=== PATIENT | male | born 1990 | race Caucasian/White ===

== ENCOUNTER → 2017-12-19 | Outpatient (CLI) | payer OTHER ==
[~2017-12-19] MED LIST: IOPAMIDOL (ISOVUE-300) 100 ML BTL ONE
== END ==
LOC: FIMAGING 12:07
PROVIDERS: ATTEND Family Medicine
DX: R10.31 Right lower quadrant pain (principal); K76.89 Other specified diseases of liver
CPT/HCPCS: Q9967

== ENCOUNTER 2018-11-08 14:33 | Emergency (ER) | payer SELFPAY ==
[2018-11-08] MEDS ORDERED: LORazepam 1 MG TAB PO ONE (15:16)
--- NOTE | 2018-11-08 15:16 | EDPHY ---
H & P Stated Complaint: headache and hot flashes Source: Patient Exam Limitations: No limitations - Personal History Current Tetanus/Diphtheria Vaccine: Yes Current Tetanus Diphtheria and Acellular Pertussis (TDAP): Yes - Medical/Surgical History Hx Asthma: No Hx Chronic Respiratory Disease: No Hx Diabetes: No Hx Cardiac Disease: No Hx Renal Disease: No Hx Cirrhosis: No Hx Alcoholism: No Hx HIV/AIDS: No Hx Splenectomy or Spleen Trauma: No Other PMH: healthy per pt - some anxiety Time Seen by Provider: 11/08/18 15:07 HPI/ROS: HPI: This is a 28-year-old male who presents with Chief Complaint: headache and hot flashes Location: Head Quality: Pain Duration: Several months Signs and Symptoms: no fever, no nausea, no vomiting, + photophobia, no noise sensitivity, no neck stiffness, no ear pain, no tinnitus, no nasal congestion, no sinus pressure, no weakness, no radiation, no aura Timing: Acute, daily Severity: [id number] Context: Patient is generally healthy, suffers from anxiety, presents with daily chronic headaches that her generalized in nature and dull and aching accompanied by hot flashes and fatigue. He reports he has gained 30 lb over the summer. He initially thought he contracted chlamydia over the summer by his girlfriend and his tests came back today and had no STDs. He has been seen at the [facility] several times regarding watery eyes, itchy eyes, headaches. He was treated 2 months ago for sinus infection with 10 days of antibiotics with no improvement in his headaches or itchy eyes. He is trying to get his health insurance figured out but is very difficult and he reports that he feels very stressed. Patient denies this being the worst headache of his life or thunderclap symptoms. Modifying Factors: See above Comment: ROS: A comprehensive 10 system review of systems is otherwise negative aside from elements mentioned in the history of present illness. MEDICAL/SURGICAL/SOCIAL HISTORY: Medical history: Generally healthy. Anxiety. Surgical history: Denies Social history: Nonsmoker. Smokes marijuana. Family history noncontributory. CONSTITUTIONAL: Tearful, anxious, adult white male, smells like marijuana, awake and alert, no obvious distress HEENT: Atraumatic and normocephalic, PERRL, EOMI. Nares patent; no rhinorrhea; no nasal mucosal edema. Tympanic membranes clear. Oropharynx clear, no exudate and moist pink mucosa. Airway patent. No lymphadenopathy. No meningismus. Cardiovascular: Normal S1/S2, regular rate, regular rhythm, without murmur rub or gallop. PULMONARY/CHEST: Symmetrical and nontender. Clear to auscultation bilaterally. Good air movement. No accessory muscle usage. ABDOMEN: Soft, nondistended, nontender, no rebound, no guarding, no peritoneal signs, no masses or organomegaly. No CVAT. EXTREMITIES: 2/2 pulses, strength 5/5, no deformities, no clubbing, no cyanosis or edema. NEUROLOGICAL: no focal neuro deficits. GCS 15. Normal cerebellar testing. Cranial nerves 2-12 grossly intact. Normal [id number]. SKIN: Warm and dry, no erythema. no rash. Good capillary refill. (Claudia Dela Cruz) Constitutional: Initial Vital Signs Temperature (C) 36.8 C 11/08/18 14:47 Heart Rate 90 11/08/18 14:47 Respiratory Rate 16 11/08/18 14:47 Blood Pressure 144/84 H 11/08/18 14:47 O2 Sat (%) 98 11/08/18 14:47 O2 Delivery Mode Room Air Allergies/Adverse Reactions: No Known Allergies Allergy (Unverified 11/08/18 14:50) Home Medications: Medication Instructions Recorded NK [No Known Home Meds] 11/08/18 Medical Decision Making ED Course/Re-evaluation: Vital signs reviewed and stable upon arrival. Head CT ordered Given p.o. Ativan 1 mg 1543: Case management consult regarding insurance 1545: Called by Radiology, Dr. Guajardo, who advised that head CT scan shows no acute intracranial process including no sinusitis. This patient was seen under the supervision of my secondary supervising physician. I evaluated care for this patient independently. Discussed this patient with Dr. Luna who did not see the patient. (Claudia Dela Cruz) I did not see this patient while he was in the emergency department. However his care was discussed with the PA while the patient was in the department. I agree with treatment plan and management (Jontahan Luna) Differential Diagnosis: Headache including but not limited to subarachnoid hemorrhage, migraine headache , tension headache and infectious causes such as meningitis, pharyngitis and sinusitis. (Claudia Dela Cruz) - Data Points Medications Given: Discontinued Medications Lorazepam (Ativan) 1 mg PO EDNOW ONE Stop: 11/08/18 15:17 Last Admin: 11/08/18 15:21 Dose: 1 mg Departure - Departure Disposition: Home, Routine, Self-Care Clinical Impression: Does not have health insurance, Daily headache Condition: Good Instructions: General Headache (ED) Additional Instructions: Take Tylenol 650 mg every 4 hours and/or Ibuprofen 600 mg every 8 hours with food as needed for pain/headache. Consume a minimum of 8-10 glasses of water or electrolyte fluid replacement drinks that include Gatorade, Powerade, Pedialyte. Follow-Up: Please follow-up as noted above. Follow up sooner if your condition worsens or if you develop any new problems Call as soon as possible for an appointment. Be clear when you call for an appointment that this is an Emergency Department follow-up. Contact the Emergency Department if you are having trouble arranging follow up care. Our referrals are not based on your insurance network. When time allows, contact your insurance carrier to verify the referral physician is in your plan. If not, get a referral for an in-network cabler. Please ask us if you have any questions. Referrals: J Carlos Gardner MD [Medical Doctor] - As per Instructions [facility],. [Clinic] - 5-7 days, call for appt.
[2018-11-08 17:01] VITALS: BP 123/71
--- NOTE | 2018-11-09 18:23 | ASMTCMCOM ---
CM Note CM Note Notes: Late Entry from 11/08/18: Requested to speak to pt re:Medicaid. Spoke w/pt and he states he is homeless and staying at the [facility] long-term. Pt states he tried to apply for Medicaid online but it won't allow him to complete the application due to him living in [place] in the past and having Medicaid there. Pt provided information on [facility], [facility] and also provided him contact info for [employer]. Pt appreciative of assistance and resources. CM available for further assistance if needed. Date Signed: 11/09/2018 06:23 PM Electronically Signed By:Trish Buchanan RN
== END 2018-11-08 17:01 | disposition home or self-care (01) ==
DX: R51 Headache (principal); R23.2 Flushing; F41.9 Anxiety disorder, unspecified

== ENCOUNTER 2018-11-29 11:36 | Emergency (ER) | payer SELFPAY ==
--- NOTE | 2018-11-29 12:12 | EDPHY ---
H & P Stated Complaint: H/A, weakness x3mos, CP rad L arm and neck since lst night. Source: Patient Exam Limitations: No limitations - Personal History Current Tetanus/Diphtheria Vaccine: Yes - Medical/Surgical History Hx Asthma: No Hx Chronic Respiratory Disease: No Hx Diabetes: No Hx Cardiac Disease: No Hx Renal Disease: No Hx Cirrhosis: No Hx Alcoholism: No Hx HIV/AIDS: No Hx Splenectomy or Spleen Trauma: No Other PMH: healthy per pt - some anxiety - Social History Smoking Status: Never smoked Time Seen by Provider: 11/29/18 12:11 HPI/ROS: HPI: This is a 28-year-old male who presents with Chief Complaint: H/A, weakness x 3 mos, CP rad L arm and neck since lst night. Location: Left chest, left neck Quality: Pain Duration: Since last night Signs and Symptoms: no shortness of breath at rest, no shortness of breath on exertion, no cough, no palpitations, no lower extremity edema, no wheezing, no orthopnea, no paroxysmal nocturnal dyspnea, no fever, no injury/trauma, no hemoptysis, no carpal pedal spasms Timing: Acute, waxes and wanes, radiating in nature Severity: [id number]-oo-yuwuifau Context: Patient is homeless, nonsmoker, denies drug use, presents with sudden onset of left-sided chest pain that radiated up into his left neck that was described as moderate constant and radiating in nature accompanied by shortness of breath, anger and anxiety. 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 Patient reports that he went on break in the chest pain resolved. He then went home and started to think about the chest pain and thought it could be something worse to the chest pain return. He currently complains of left-sided chest pain that is nonradiating in nature at this time. His grandfather on the paternal side has a history of heart attack in his 60s. He does not know a lot about his mother and father's health history. Patient was seen by me November 08, 2018 for headache with a negative head CT scan and refer of Neurology. Patient reports that he went to [place] for [place] and just called to have an appointment with Neurology since. He also complains of continued generalized headaches as well as weakness for the last 3 months. No primary care provider. Modifying Factors: Comment: ROS: A comprehensive 10 system review of systems is otherwise negative aside from elements mentioned in the history of present illness. MEDICAL/SURGICAL/SOCIAL HISTORY: Medical history: Anxiety. Does not take any regular medications. Surgical history: Denies Social history: Homeless. Never smoked. CONSTITUTIONAL: awake and alert, no obvious distress HEENT: Atraumatic and normocephalic, PERRL, EOMI. Nares patent; no rhinorrhea; no nasal mucosal edema. Tympanic membranes clear. Oropharynx clear, no exudate and moist pink mucosa. Airway patent. No lymphadenopathy. No meningismus. Cardiovascular: Normal S1/S2, regular rate, regular rhythm, without murmur rub or gallop. PULMONARY/CHEST: Symmetrical and nontender. Clear to auscultation bilaterally. Good air movement. No accessory muscle usage. ABDOMEN: Soft, nondistended, nontender, no rebound, no guarding, no peritoneal signs, no masses or organomegaly. No CVAT. EXTREMITIES: 2/2 pulses, strength 5/5, no deformities, no clubbing, no cyanosis or edema. NEUROLOGICAL: no focal neuro deficits. GCS 15. SKIN: Warm and dry, no erythema. no rash. Good capillary refill. (Claudia Dela Cruz) Constitutional: Initial Vital Signs Temperature (C) 36.5 C 11/29/18 11:42 Heart Rate 74 11/29/18 11:42 Respiratory Rate 18 11/29/18 11:42 Blood Pressure 160/97 H 11/29/18 11:42 O2 Sat (%) 97 11/29/18 11:42 O2 Delivery Mode Room Air Allergies/Adverse Reactions: No Known Allergies Allergy (Verified 11/29/18 11:42) Home Medications: Medication Instructions Recorded NK [No Known Home Meds] 11/08/18 Medical Decision Making - Diagnostics EKG Interpretation: 12 lead EKG: Indication: Chest pain Rhythm: Normal sinus rhythm [place]: Normal Intervals: Normal QRS: Normal ST segments: Normal INTERPRETATION: Normal EKG The 12 lead EKG was interpreted by myself and with attending. (Claudia Dela Cruz) ED Course/Re-evaluation: Vital signs reviewed and show mildly elevated blood pressure upon arrival. IV access, laboratory studies, chest x-ray, EKG ordered Patient given 1 L normal saline and IV Ativan 1 mg 1240: EKG my read shows normal sinus rhythm, rate of 75 beats per minute, left anterior fascicular block, no acute ischemic changes. 1242: Notified by [employer] that troponin 0.02 1255: Labs reviewed. No signs of leukocytosis/anemia/platelet dysfunction/BERNICE/ elevated LFTs/electrolyte imbalance/pancreatitis/VTE/ACS. Chest x-ray my read shows no opacity, no effusion, no pneumothorax, no widened mediastinum. HEART score= risk I reviewed the share decision making instrument with the patient, including risk of MACE, and the patient (and family) that are in agreement with the chosen disposition. Chest pain started last night. No indication for 2nd troponin as it has been greater than 6 hr. Case management consult for [facility] follow-up appointment date and time. This patient was seen under the supervision of my secondary supervising physician. I evaluated care for this patient independently. (Claudia Dela Cruz) Differential Diagnosis: Chest pain including but not limited to myocardial ischemia, pulmonary embolus, chest wall pain, pleural inflammation and pulmonary infectious causes. (Claudia Dela Cruz) Other Provider: The patient was evaluated and managed by the Physician Cardiac/Vascular Sonographer. My co- signature indicates that I have reviewed this chart and I agree with the findings and plan of care as documented. I am the secondary supervising physician. (Sanam Gaitan) - Data Points Laboratory Results: Laboratory Results 11/29/18 12:20 11/29/18 12:20 Medications Given: Discontinued Medications Sodium Chloride (Ns) 1,000 mls @ 0 mls/hr IV EDNOW ONE; Wide Open PRN Reason: Protocol Stop: 11/29/18 12:19 Last Admin: 11/29/18 12:28 Dose: 1,000 mls Lorazepam (Ativan Injection) 1 mg IVP EDNOW ONE Stop: 11/29/18 12:19 Last Admin: 11/29/18 12:29 Dose: 1 mg Point of Care Test Results: Chemistry 11/29/18 12:22 POC Troponin I 0.01 ng/mL ng/mL (0.00-0.08) Departure - Departure Disposition: Home, Routine, Self-Care Clinical Impression: Atypical chest pain, Tension headache, chronic Condition: Good Instructions: Tension Headache (ED), Noncardiac Chest Pain (ED) Additional Instructions: Take Tylenol 650 mg every 4 hours and/or Ibuprofen 600 mg every 8 hours with food as needed for pain/headache. Please perform gentle stretching exercises and relaxation techniques. Called to establish primary care at the [facility]. Referrals: [facility],. [Clinic] - As per Instructions
[2018-11-29] MEDS ORDERED: NS 1,000 ML IV ONE (12:18)
[2018-11-29] MEDS ORDERED: LORazepam 2 MG/ML INJ IVP ONE (12:18)
[2018-11-29 12:31] LABS: PLATELET COUNT 261 10^3/uL (150-400)
[2018-11-29 12:45] LABS: INR 0.95 (0.83-1.16); PROTIME(PATIENT) 12.9 SEC (12.0-15.0)
[2018-11-29 14:25] VITALS: BP 138/87
--- NOTE | 2018-11-29 15:27 | CPEKG ---
Test Reason : OPEN Blood Pressure : / mmHG Vent. Rate : 075 BPM Atrial Rate : 076 BPM P-R Int : 132 ms QRS Dur : 094 ms QT Int : 392 ms P-R-T Axes : 051 -49 030 degrees QTc Int : 438 ms Sinus rhythm LAD, consider left anterior fascicular block Confirmed by Sanam Gaitan ([id number]) on 11/29/2018 3:26:54 PM Referred By: Confirmed By:Sanam Gaitan
--- NOTE | 2018-11-30 09:30 | ASMTCMCOM ---
CM Note CM Note Notes: Pt presented to the ED for CP, VIZCAINO, and left arm pain. Pt states he has an appt in a few weeks w/[facility] to complete the initial financial screening. Pt states he has completed the Medicaid application and his appt to complete their required assessment isn't until late November. ED provider requesting that pt followup w/a provider sometime this week. This CM called [facility] and requested they reach out to the pt to schedule an appt this week; spoke w/Milena at [facility] and she says they will reach out. Pt aware that he may have to pay a sliding scale fee since his Medicaid is not active yet; pt okay with this possibility and is agreeable to having [facility] call him. Pt appreciative of assistance. CM available for further assistance if needed. Date Signed: 11/30/2018 09:30 AM Electronically Signed By:Trish Buchanan RN
== END 2018-11-29 14:23 | disposition home or self-care (01) ==
DX: R07.9 Chest pain, unspecified (principal); R51 Headache; E86.9 Volume depletion, unspecified; Z82.49 Family history of ischemic heart disease and other diseases of the circulatory system
CPT/HCPCS: 84484-ER; 96374; J2060